=== PATIENT | female | born 1990 | race Caucasian/White ===

== ENCOUNTER 2016-11-12 13:06 | Observation (INO) | payer BC ==
[~2016-11-12] VITALS: Ht 157.5 cm; Wt 111.9 kg
[2016-11-12] VITALS (11 sets, daily range): BP systolic 105–125; BP diastolic 53–75
--- NOTE | 2016-11-12 14:45 | ED NURSING NOTES ---
Clinical Report - Nurses [facility] [address] [place] [address] 11/12/2016 13:07 Patient: GLORIA RUIZ TRIAGE Triage time 13:32 Nov 12 2016. Acuity: LEVEL 3. Chief Complaint: HEADACHE and MIGRAINE HEADACHE. ELLE COMA SCORE: Elle Coma Scale: 15- eyes open spontaneously (4); best verbal response- oriented x 4 (5); best motor response- obeys commands (6). --13:46 Artur Lopez R.N. 13:32 11/12/16. BP: 109/76. HR: 112. RR: 18. O2 saturation: 95%. Temp: 98.4 F. Pain level now 10/10. --13:46 Artur Lopez R.N. Weight: 109.7 kg stated. Height/Length: 62 inches Per Patient. BMI: 44.3. --13:43 Artur Lopez R.N. Medications Omeprazole Oral (pt unsure of dose ). --13:33 Artur Lopez R.N. Allergies Percocet. --13:33 Artur Lopez R.N. History Arrived by private vehicle. Historian: patient. Accompanied by family. This started just prior to arrival. She has had weakness. No nausea, vomiting, numbness, fever or sinus pain. Treatment FACILITIES MANAGER: None. PAST MEDICAL HX: Headaches. Last normal menstrual period- 2 days ago. SOCIAL HX: Never smoker. Occasional alcohol use. No drug use. No known contact with a sick individual. SELF HARM ASSESSMENT: A self harm assessment was performed. The patient answered "no" to the question "Have you recently felt down, depressed, or hopeless?" and "Do you have thoughts of harming or killing yourself?". FALL RISK ASSESSMENT: Fall risk assessment completed. No fall risk identified. NUTRITIONAL RISK ASSESSMENT: The nutritional risk assessment revealed no deficiencies. FUNCTIONAL ASSESSMENT: Functional assessment: no impairments noted. LEARNING NEEDS ASSESSMENT: The learning needs assessment revealed no barriers. ABUSE ASSESSMENT: Abuse assessment: (no) The patient was asked "Do you feel safe in your home?". SKIN INTEGRITY ASSESSMENT: Skin integrity risk assessment completed. No skin integrity risk identified. --13:46 Artur Lopez R.N. PROBLEMS: Hypocalcemia. Abnormal Test. Gastritis. Abdominal Pain. Nephrolithiasis. Asthma. Arthritis. Fever. UTI - Urinary Tract Infection. Lymphadenitis. Pharyngitis. Sprain. LNMP - Last Normal Menstrual Period. Dental Pain. Immunizations. --13:33 Artur Lopez R.N. The following entry was modified by Artur Lopez R.N., 13:45 <<STRICKEN ENTRY-- . --21:37 Artur Lopez R.N. --END STRIKE>>. ADDITIONAL SURGERIES: Adenoidectomy. Dilatation & Curettage. Tonsillectomy. Tympanostomy Tubes. --13:33 Artur Lopez R.N. Interventions ID and allergy band on patient. --13:46 Artur Lopez R.N. PHYSICAL ASSESSMENT To room via wheelchair. GENERAL / NEURO / PSYCH: Alert. Oriented X 4. Appears anxious. Speech within normal limits. HEENT: No facial asymmetry noted. Pupils equal, round and reactive to light. RESPIRATORY: Respirations not labored. Breath sounds within normal limits. CVS: Capillary refill less than 2 seconds. GI / : Abdomen soft and nontender. ( Has a stool accident in pants). SKIN: Skin is warm and dry. --13:47 Artur Lopez R.N. NURSING PROGRESS NOTES The initial plan of care for this patient includes an assessment with efforts to address patient positioning and appropriate ambient lighting. Pulse oximeter and NIBP monitor placed on patient. Reassurance given. Call light placed in reach. Side rails up x 1. Bed placed in lowest position. Brakes of bed on. --13:47 Artur Lopez R.N. 13:58 11/12/2016 Site #1 started via IV in the right upper arm with an 20g angiocath; one attempt. Blood drawn: rainbow set. Labeled in the presence of the patient and sent to the lab. Saline lock flushed with 10 mL saline. --14:13 Artur Lopez R.N. 14:04 11/12/2016 Started bag #1 1000 mL IV Fluids IV NS (Saline); at 1000 mL/hr over 1 hour(s) via site #1 via dial-a-flow. Allergies verified and confirmed 5 rights. IV patency established. IV site checked: no pain, redness, or swelling. IV flushed thoroughly pre- and post-medication administration. --14:14 Artur Lopez R.N. 14:09 11/12/2016 Reglan (Metoclopramide HCl) IVP 10 mg given over 4 minute(s) via site #1. Allergies verified and confirmed 5 rights. IV patency established. IV site checked: no pain, redness, or swelling. IV flushed thoroughly pre- and post-medication administration. --14:14 Artur Lopez R.N. 14:10 11/12/2016 Benadryl (DiphenhydrAMINE HCl) IVP 25 mg given over 2 minute(s) via site #1. Allergies verified, confirmed 5 rights and sedative warning given to the patient and patient's granulator machine operator. IV patency established. IV site checked: no pain, redness, or swelling. IV flushed thoroughly pre- and post-medication administration. --14:15 Artur Lopez R.N. 14:15 11/12/2016 Toradol IVP 30 mg given over 1 minute(s) via site #1. Allergies verified and confirmed 5 rights. IV patency established. IV site checked: no pain, redness, or swelling. IV flushed thoroughly pre- and post-medication administration. --14:15 Artur Lopez R.N. 14:15 11/12/2016 Meclizine PO Capsules 50 mg given. Allergies verified, confirmed 5 rights and sedative warning given to the patient and patient's family. --14:15 Artur Lopez R.N. 14:45 11/12/2016 IV Fluids IV NS Discontinued: bag #1 infused. Total amount infused: 55320 mL. IV patency established. IV site checked: no pain, redness, or swelling. IV flushed thoroughly. --14:45 Artur Lopez R.N. 14:52 11/12/2016 Started bag #1 1000 mL IV Fluids IV NS (Saline); at 100 mL/hr over 8 hour(s) via site #1 via IV pump. Allergies verified and confirmed 5 rights. IV patency established. IV site checked: no pain, redness, or swelling. IV flushed thoroughly pre- and post-medication administration. --14:52 Artur Lopez R.N. ( Called for report to 3rd no answer.). --15:32 Artur Lopez R.N. 15:47 11/12/16. BP: 120/72. HR: 100. RR: 18. O2 saturation: 99%. Temp: 98.4 F. Pain level now 0/10. --15:47 Artur Lopez R.N. ( Report given to SCU RN patient to be transferred after EKG.). --15:48 Artur Lopez R.N. EKG time: (1556). EKG was ordered, performed by a tech and shown to the ED physician. --16:12 Chelo Lopez. DISPOSITION / DISCHARGE Admitted to the Critical Care Unit (302). --16:14 Artur Lopez R.N. 15:47 11/12/16. BP: 120/72. HR: 100. RR: 18. O2 saturation: 99%. Temp: 98.4 F. Pain level now 0/10. --16:14 Artur Lopez R.N. Departure time: 16:00 Nov 12 2016. --16:14 Artur Lopez R.N. Locked/Released at 11/13/2016 19:20 by Artur Lopez R.N.
--- NOTE | 2016-11-12 14:45 | ED CLINICAL REPORT ---
Clinical Report - Physicians/Mid Levels [facility] [address] [place] [address] 11/12/2016 13:07 Patient: GLORIA RUIZ Time Seen: 13:38; initial patient contact, initial documentation, patient care assumed. Arrived- By private vehicle. Historian- patient and spouse. HISTORY OF PRESENT ILLNESS Is still present and now worse. 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 Chief Complaint: HEADACHE. This started several months ago. It is described as similar to previous headaches, "pain" and diffuse. No neck pain. Not located in the facial region. At its maximum, severity described as severe. When seen in the E.D., severity described as severe. Modifying factors: worsened by moving head and general movement; relieved by nothing. The patient has had nausea. She has had new onset of generalized weakness. No preceding symptoms, blurred vision, photophobia, numbness or vomiting. (says she is seeing head specialist , and they started her on verapamil for headaches, and that she was dx with pseudotumors was with spouse at work, assisting in moving a car, and got very dizzy and had to lay down, and then she was so weak, she started to poop on herself). No recent travel. Similar symptoms previously: Chronically, worse. REVIEW OF SYSTEMS No fever, muscle aches, sinus pressure, ear pain or sore throat. No head injury, chest pain, difficulty breathing or cough. She has had moderate dizziness described as vertiginous in quality. on period now, and this period and last months were very heavy, with lots of clots. All systems otherwise negative, except as recorded above. PAST HISTORY See nurses notes. PROBLEMS: Hypocalcemia. Abnormal Test. Gastritis. Abdominal Pain. Nephrolithiasis. Asthma. Arthritis. Fever. UTI - Urinary Tract Infection. Lymphadenitis. Pharyngitis. Sprain. LNMP - Last Normal Menstrual Period. Dental Pain. Immunizations. --13:33 Artur Lopez R.N. The following entry was modified by Artur Lopez R.N., 13:45 . --21:37 Artur Lopez R.N.. ADDITIONAL SURGERIES: Adenoidectomy. Dilatation & Curettage. Tonsillectomy. Tympanostomy Tubes. --13:33 Artur Lopez R.N. SOCIAL HISTORY Never smoker. Occasional alcohol use. No drug use. No recent travel. She lives with spouse. FAMILY HISTORY Negative. ADDITIONAL NOTES The nursing notes have been reviewed with agreement regarding the chief complaint, HPI, ROS, PMH and patient medications and allergies. PHYSICAL EXAM Vital Signs: 11/12/2016 13:32 BP: 109/76. HR: 112. RR: 18. O2 saturation: 95%. Temp: 98.4 F. Have been reviewed as abnormal and appear to be correct. Blood pressure normal. Tachycardic. Respiratory rate normal. Temperature normal. Oxygen saturation normal. Appearance: Alert. No acute distress. Eyes: Pupils equal, round and reactive to light. Eyes normal inspection. ENT: Ears normal. Nose normal. Pharynx normal. Neck: Normal inspection. Neck supple. CVS: Normal heart rate and rhythm. Heart sounds normal. Pulses normal. Respiratory: No respiratory distress. Breath sounds normal. Abdomen: Moderately obese. Back: Normal inspection. Rectal: Rectal exam normal. No abnormal findings on digital exam or exam. Skin: Skin warm and dry. Slight pallor. Abnormal skin color. No rash. Normal skin turgor. Extremities: Extremities exhibit normal ROM. No lower extremity edema. Neuro: Oriented X 3. Alert. Mood/affect normal. Speech normal. Cranial nerves normal (as tested). No cerebellar findings. No motor deficit. No sensory deficit. LABS, X-RAYS, AND EKG EKG: EKG time: (1556). No acute process. No acute ischemia. Normal EKG. Bradycardia. The study has been interpreted contemporaneously (by dr mohan and reviewed by me). The EKG appears to be a good tracing. Interpretation time: 1558. Laboratory Tests: Serum Qualitative: (DANIEL: 11/12/2016 14:00) ( MsgRcvd 11/12/2016 14:30) Final results Test Result Flag Units (Reference) , SERUM NEGATIVE CBC w Diff: (DANIEL: 11/12/2016 14:00) ( MsgRcvd 11/12/2016 14:58) Final results Test Result Flag Units (Reference) WHITE BLOOD COUNT 9.4 K/uL (4.5-11.5) RED BLOOD COUNT 3.67 L M/uL (4.00-5.20) HEMOGLOBIN 6.6 *L gm/dL (12.0-16.0) CRITICAL RESULTS CALLEDCalled to ADRIANE REYNOLDS RN 11/12/16 1432Were 2 patient identifiers used? YWas the result read back? Y HEMATOCRIT 22.2 L % (36.0-46.0) MEAN CELL VOLUME 61 L fL (80-100) MEAN CORPUSCULAR HGB 18 L pg (26-34) MEAN CORPUSCULAR HGB CONC 30 L g/dL (31-37) RED CELL DISTRIBUTION WIDTH 18.8 H % (11.6-14.8) PLATELET COUNT 330 K/uL (150-400) NEUTROPHIL % 79.8 H % (50-75) LYMPH % 13.8 L % (25-40) MONO % 5.2 % (3-14) EOSINOPHIL % 0.9 % (0-4) BASOPHIL % 0.3 % (0-2) RBC MORPHOLOGY 2+ HYPOCHROMIA~~1+ ANISOCYTOSIS~~1+ MICROCYTOSIS~~1+ POIKILOCYTOSIS~~1+ POLYCHROMIA CMP: (DANIEL: 11/12/2016 14:00) ( MsgRcvd 11/12/2016 14:33) Final results Test Result Flag Units (Reference) GLUCOSE 105 mg/dL (70-110) BUN 15 mg/dL (7-18) CREATININE 0.9 mg/dL (0.6-1.3) Estimated GFR >60 mL/min Estimated GFR- >60 mL/min Note: Persistent reduction over 3 months in eGFR<60 mL/min/1.73 m2 defines CKD. Patients with eGFR values>=60 mL/min/1.73 m2 may also have CKD if evidence ofpersistent proteinuria. Additional information may be foundat www.kidney.org. SODIUM 139 mmol/L (136-145) POTASSIUM 3.7 mmol/L (3.5-5.1) CHLORIDE 101 mmol/L (98-107) CARBON DIOXIDE 26 mmol/L (21-32) CALCIUM 9.4 mg/dL (8.5-10.1) TOTAL PROTEIN 7.7 g/dL (6.4-8.2) ALBUMIN 3.9 g/dL (3.3-5.0) BILIRUBIN, TOTAL 0.3 mg/dL (0.0-1.0) ALKALINE PHOSPHATASE 87 U/L (46-116) AST (SGOT) 13 L U/L (15-37) ALT (SGPT) 20 U/L (12-78) . PROGRESS AND PROCEDURES Discussed case with on-call health care provider, (call returned 1440 Dr Khan). Reviewed test results. Agreed upon treatment plan and decision to admit. Health care provider will see patient in hospital. Differential Diagnosis: I considered labyrinthitis, vestibular neuronitis, Meniere's disease, drug-related etiology, benign positional vertigo, brainstem TIA, basilar artery migraine, drug-related cause of central vertigo, anxiety, psychosis and metaphorical dizziness such as depression, chronic fatigue, etc as a possible cause of dizziness in this patient. This is a partial list of diagnoses considered. Above considerations are based on history, physical exam, reassessment and laboratory data. Differential diagnosis was discussed with patient and patient's spouse. Observation orders written. Disposition: Admitted to Acute Care. 14:44. Condition: good and stable. CLINICAL IMPRESSION Acute vertigo of unknown cause. Mild chronic iron deficiency anemia from chronic blood loss and anemia associated with acute blood loss. (Electronically signed by Lashae Trujillo A.R.N.P. 11/12/2016 16:23) Addenda for GLORIA RUIZ VisitID: [id number] Date: 11/12/2016 11/12/2016 15:49 I have written minimal transition orders. As I got past Dx and admit status I started duplicating Dr Khan's orders which were already done. (Electronically signed by Casimiro Mohan MD - 11/12/2016 15:49)
--- NOTE | 2016-11-12 14:45 | ED ORDER SUMMARY ---
..... Patient: GLORIA RUIZ OrderSheet [facility] VisitID: [id number] [address] [place] [address] 26y, F Registration Date/Time: 11/12/2016 ORDER SHEET Weight: 109.7 kg (stated) Allergies: Percocet GENERAL ORDERS: CBC w Diff Urgent (13:46 11/12/2016 HBivens A.R.N.P.) (Ack 13:48 OHnirajnandez) (14:14 LWhalen R.N.) CMP Urgent (13:46 11/12/2016 HBivens A.R.N.P.) (Ack 13:48 OHnirajnandez) (14:14 LWhalen R.N.) Serum Qualitative Urgent (13:46 11/12/2016 HBivens A.R.N.P.) (Ack 13:48 OHnirajnandez) (14:14 LWhalen R.N.) Type & Screen Urgent (14:34 11/12/2016 HBivens A.R.N.P.) (14:34 HBivens A.R.N.P.) Type & Cross (anemia) (anemia, low h&H) Urgent (14:42 11/12/2016 HBivens A.R.N.P.) (14:52 LWhalen R.N.) - (Vitamin B 12 level stat) (14:43 11/12/2016 HBivens A.R.N.P.) (14:52 LWhalen R.N.) -- (folate level stat) (14:43 11/12/2016 HBivens A.R.N.P.) (14:52 LWhalen R.N.) --- (Iron profile study panel stat) (14:43 11/12/2016 HBivens A.R.N.P.) (14:52 LWhalen R.N.) EKG - ER Stat (15:47 11/12/2016 HBivens A.R.N.P.) (Ack 15:57 Cristian) (16:00 Cristian) MEDICATION ORDERS: Meclizine PO 50 mg (NOW) (13:46 11/12/2016 HBivens A.R.N.P.) (14:15 LWhalen R.N.) IV FLUIDS: IV NS : initial bolus 1000 mL (1000 mL/hr), then none - (NOW) (13:46 11/12/2016 HBivens A.R.N.P.) (14:14 LWhalen R.N.) Reglan IV 10 mg (NOW) (13:46 11/12/2016 HBivens A.R.N.P.) (14:14 LWhalen R.N.) Benadryl IV 25 mg (NOW) (13:46 11/12/2016 HBivens A.R.N.P.) (14:15 LWhalen R.N.) Toradol IV 30 mg (NOW) (13:46 11/12/2016 HBivens A.R.N.P.) (14:15 LWhalen R.N.) IV Saline Lock (13:46 11/12/2016 HBivens A.R.N.P.) (14:13 LWhalen R.N.) IV NS : initial bolus 1000 mL (1000 mL/hr), then 100 mL/hr (NOW) (14:43 11/12/2016 HBivens A.R.N.P.) (14:52 LWhalen R.N.) ORDER SHEET NOTES: [Electronically signed by Lashae Trujillo.R.N.P. (16:23 11/12/2016)] [Electronically signed by Artur Lopez R.N. (19:20 11/13/2016)] [Electronically locked/signed by Artur Lopez R.N. (19:20 11/13/2016)]
--- NOTE | 2016-11-12 14:45 | ED NURSING NOTES ---
Clinical Report - Nurses [facility] [address] [place] [address] 11/12/2016 13:07 Patient: GLORIA RUIZ TRIAGE Triage time 13:32 Nov 12 2016. Acuity: LEVEL 3. Chief Complaint: HEADACHE and MIGRAINE HEADACHE. ELLE COMA SCORE: Elel Coma Scale: 15- eyes open spontaneously (4); best verbal response- oriented x 4 (5); best motor response- obeys commands (6). --13:46 Artur Lopez R.N. 13:32 11/12/16. BP: 109/76. HR: 112. RR: 18. O2 saturation: 95%. Temp: 98.4 F. Pain level now 10/10. --13:46 Artur Lopez R.N. Weight: 109.7 kg stated. Height/Length: 62 inches Per Patient. BMI: 44.3. --13:43 Artur Lopez R.N. Medications Omeprazole Oral (pt unsure of dose ). --13:33 Artur Lopez R.N. Allergies Percocet. --13:33 Artur Lopez R.N. History Arrived by private vehicle. Historian: patient. Accompanied by family. This started just prior to arrival. She has had weakness. No nausea, vomiting, numbness, fever or sinus pain. Treatment CLINICAL SYSTEMS ANALYST: None. PAST MEDICAL HX: Headaches. Last normal menstrual period- 2 days ago. SOCIAL HX: Never smoker. Occasional alcohol use. No drug use. No known contact with a sick individual. SELF HARM ASSESSMENT: A self harm assessment was performed. The patient answered "no" to the question "Have you recently felt down, depressed, or hopeless?" and "Do you have thoughts of harming or killing yourself?". FALL RISK ASSESSMENT: Fall risk assessment completed. No fall risk identified. NUTRITIONAL RISK ASSESSMENT: The nutritional risk assessment revealed no deficiencies. FUNCTIONAL ASSESSMENT: Functional assessment: no impairments noted. LEARNING NEEDS ASSESSMENT: The learning needs assessment revealed no barriers. ABUSE ASSESSMENT: Abuse assessment: (no) The patient was asked "Do you feel safe in your home?". SKIN INTEGRITY ASSESSMENT: Skin integrity risk assessment completed. No skin integrity risk identified. --13:46 Artur Lopez R.N. PROBLEMS: Hypocalcemia. Abnormal Test. Gastritis. Abdominal Pain. Nephrolithiasis. Asthma. Arthritis. Fever. UTI - Urinary Tract Infection. Lymphadenitis. Pharyngitis. Sprain. LNMP - Last Normal Menstrual Period. Dental Pain. Immunizations. --13:33 Artur Lopez R.N. The following entry was modified by Artur Lopez R.N., 13:45 <<STRICKEN ENTRY-- . --21:37 Artur Lopez R.N. --END STRIKE>>. ADDITIONAL SURGERIES: Adenoidectomy. Dilatation & Curettage. Tonsillectomy. Tympanostomy Tubes. --13:33 Artur Lopez R.N. Interventions ID and allergy band on patient. --13:46 Artur Lopez R.N. PHYSICAL ASSESSMENT To room via wheelchair. GENERAL / NEURO / PSYCH: Alert. Oriented X 4. Appears anxious. Speech within normal limits. HEENT: No facial asymmetry noted. Pupils equal, round and reactive to light. RESPIRATORY: Respirations not labored. Breath sounds within normal limits. CVS: Capillary refill less than 2 seconds. GI / : Abdomen soft and nontender. ( Has a stool accident in pants). SKIN: Skin is warm and dry. --13:47 Artur Lopez R.N. NURSING PROGRESS NOTES The initial plan of care for this patient includes an assessment with efforts to address patient positioning and appropriate ambient lighting. Pulse oximeter and NIBP monitor placed on patient. Reassurance given. Call light placed in reach. Side rails up x 1. Bed placed in lowest position. Brakes of bed on. --13:47 Artur Lopez R.N. 13:58 11/12/2016 Site #1 started via IV in the right upper arm with an 20g angiocath; one attempt. Blood drawn: rainbow set. Labeled in the presence of the patient and sent to the lab. Saline lock flushed with 10 mL saline. --14:13 Artur Lopez R.N. 14:04 11/12/2016 Started bag #1 1000 mL IV Fluids IV NS (Saline); at 1000 mL/hr over 1 hour(s) via site #1 via dial-a-flow. Allergies verified and confirmed 5 rights. IV patency established. IV site checked: no pain, redness, or swelling. IV flushed thoroughly pre- and post-medication administration. --14:14 Artur Lopez R.N. 14:09 11/12/2016 Reglan (Metoclopramide HCl) IVP 10 mg given over 4 minute(s) via site #1. Allergies verified and confirmed 5 rights. IV patency established. IV site checked: no pain, redness, or swelling. IV flushed thoroughly pre- and post-medication administration. --14:14 Artur Lopez R.N. 14:10 11/12/2016 Benadryl (DiphenhydrAMINE HCl) IVP 25 mg given over 2 minute(s) via site #1. Allergies verified, confirmed 5 rights and sedative warning given to the patient and patient's visual and stock associate. IV patency established. IV site checked: no pain, redness, or swelling. IV flushed thoroughly pre- and post-medication administration. --14:15 Artur Lopez R.N. 14:15 11/12/2016 Toradol IVP 30 mg given over 1 minute(s) via site #1. Allergies verified and confirmed 5 rights. IV patency established. IV site checked: no pain, redness, or swelling. IV flushed thoroughly pre- and post-medication administration. --14:15 Artur Lopez R.N. 14:15 11/12/2016 Meclizine PO Capsules 50 mg given. Allergies verified, confirmed 5 rights and sedative warning given to the patient and patient's family. --14:15 Artur Lopez R.N. 14:45 11/12/2016 IV Fluids IV NS Discontinued: bag #1 infused. Total amount infused: 11896 mL. IV patency established. IV site checked: no pain, redness, or swelling. IV flushed thoroughly. --14:45 Artur Lopez R.N. 14:52 11/12/2016 Started bag #1 1000 mL IV Fluids IV NS (Saline); at 100 mL/hr over 8 hour(s) via site #1 via IV pump. Allergies verified and confirmed 5 rights. IV patency established. IV site checked: no pain, redness, or swelling. IV flushed thoroughly pre- and post-medication administration. --14:52 Artur Lopez R.N. ( Called for report to 3rd no answer.). --15:32 Artur Lopez R.N. 15:47 11/12/16. BP: 120/72. HR: 100. RR: 18. O2 saturation: 99%. Temp: 98.4 F. Pain level now 0/10. --15:47 Artur Lopez R.N. ( Report given to SCU RN patient to be transferred after EKG.). --15:48 Artur Lopez R.N. EKG time: (1556). EKG was ordered, performed by a tech and shown to the ED physician. --16:12 Chelo Lopez. DISPOSITION / DISCHARGE Admitted to the Critical Care Unit (302). --16:14 Artur Lopez R.N. 15:47 11/12/16. BP: 120/72. HR: 100. RR: 18. O2 saturation: 99%. Temp: 98.4 F. Pain level now 0/10. --16:14 Artur Lopez R.N. Departure time: 16:00 Nov 12 2016. --16:14 Artur Lopez R.N. Locked/Released at 11/13/2016 19:20 by Artur Lopez R.N.
--- NOTE | 2016-11-12 14:45 | ED ORDER SUMMARY ---
..... Patient: GLORIA RUIZ OrderSheet [facility] VisitID: [id number] [address] [place] [address] 26y, F Registration Date/Time: 11/12/2016 ORDER SHEET Weight: 109.7 kg (stated) Allergies: Percocet GENERAL ORDERS: CBC w Diff Urgent (13:46 11/12/2016 HBivens A.R.N.P.) (Ack 13:48 OHnirajnandez) (14:14 LWhalen R.N.) CMP Urgent (13:46 11/12/2016 HBivens A.R.N.P.) (Ack 13:48 OHnirajnandez) (14:14 LWhalen R.N.) Serum Qualitative Urgent (13:46 11/12/2016 HBivens A.R.N.P.) (Ack 13:48 OHnirajnandez) (14:14 LWhalen R.N.) Type & Screen Urgent (14:34 11/12/2016 HBivens A.R.N.P.) (14:34 HBivens A.R.N.P.) Type & Cross (anemia) (anemia, low h&H) Urgent (14:42 11/12/2016 HBivens A.R.N.P.) (14:52 LWhalen R.N.) - (Vitamin B 12 level stat) (14:43 11/12/2016 HBivens A.R.N.P.) (14:52 LWhalen R.N.) -- (folate level stat) (14:43 11/12/2016 HBivens A.R.N.P.) (14:52 LWhalen R.N.) --- (Iron profile study panel stat) (14:43 11/12/2016 HBivens A.R.N.P.) (14:52 LWhalen R.N.) EKG - ER Stat (15:47 11/12/2016 HBivens A.R.N.P.) (Ack 15:57 Cristian) (16:00 Cristian) MEDICATION ORDERS: Meclizine PO 50 mg (NOW) (13:46 11/12/2016 HBivens A.R.N.P.) (14:15 LWhalen R.N.) IV FLUIDS: IV NS : initial bolus 1000 mL (1000 mL/hr), then none - (NOW) (13:46 11/12/2016 HBivens A.R.N.P.) (14:14 LWhalen R.N.) Reglan IV 10 mg (NOW) (13:46 11/12/2016 HBivens A.R.N.P.) (14:14 LWhalen R.N.) Benadryl IV 25 mg (NOW) (13:46 11/12/2016 HBivens A.R.N.P.) (14:15 LWhalen R.N.) Toradol IV 30 mg (NOW) (13:46 11/12/2016 HBivens A.R.N.P.) (14:15 LWhalen R.N.) IV Saline Lock (13:46 11/12/2016 HBivens A.R.N.P.) (14:13 LWhalen R.N.) IV NS : initial bolus 1000 mL (1000 mL/hr), then 100 mL/hr (NOW) (14:43 11/12/2016 HBivens A.R.N.P.) (14:52 LWhalen R.N.) ORDER SHEET NOTES: [Electronically signed by Lashae Trujillo.R.N.P. (16:23 11/12/2016)] [Electronically signed by Artur Lopez R.N. (19:20 11/13/2016)] [Electronically locked/signed by Artur Lopez R.N. (19:20 11/13/2016)]
--- NOTE | 2016-11-12 15:13 | Progress Note ---
Subjective General Admission History and Physical Examination Patient Name: Cee Easton Admission Date: November 12, 2016 Primary Care Provider: Radha Ordonez M.D. Attending Physician: Tomás Khan M.D. Admitting Physician: Tomás Khan M.D. Code Status: Full Code Room: 302 SUBJECTIVE Historian: Patient Reliability: Fair Chief Complaint: Dizziness, headache History of Present Illness: The patient is a 26-year-old white female with a significant past medical history of migraine headaches, nephrolithiasis, asthma, degenerative joint disease, gastritis, who presented to [facility] emergency department on the day of admission secondary to complaints of migraine headache. [facility] ER evaluation showed the patient to have findings of headache with associated severe anemia H& H 6.6/22.2, MCV 61. Secondary to the above, the patient was admitted by Tomás Khan M.D. for further evaluation and treatment. PAST MEDICAL HISTORY Illnesses: 1. Migraine headaches 2. Nephrolithiasis 3. Gastritis 4. Asthma 5. Degenerative joint disease Allergies: 1. Percocet Medications: 1. Prilosec 20 mg by mouth daily Surgery: 1. Tonsillectomy and adenoidectomy 2. D&C 3. Tympanostomy tubes Injuries: 1. No significant Hospitalizations: 1. For above surgery and medical problems FAMILY HISTORY Parents: 1. Father, Diamond, living, 63, diabetes mellitus, hypertension, 2. Mother, Carola, living, 57, healthy Siblings: 1. Male, Vitor, living, 36, irritable bowel syndrome, celiac disease, migraine headaches 2. Female, Yasemin, living, 31, migraine headaches Children: 1. Female, Alina, living, 7, healthy 2. Female, Trinh living, 2, asthma Other significant family history: None SOCIAL HISTORY 1. Marital Status: 2. Jew: Catholic-Roman Catholic 3. Education: High school and one year college 4. Employment History: Unemployed 5. Occupational health exposures: None HABITS 1. Tobacco: None 2. Drugs: None 3. Alcohol: Infrequent alcohol usage 4. Caffeine: 2 cups coffee, 1 cup tea, one can of soft drink per day HEALTH SUPERVISION Item/Test 1. Vision screen: No recent 2. Cholesterol Profile: No recent 3. PSA: Not applicable 4. SINDI: 2016 5. FOBT: 2017 6. Blood Glucose: 2017 7. Colonoscopy: No previous 8. History and physical exam: No recent 9. Audiogram: No previous 10. Mammogram: No previous 11. Pap/pelvic exam: Unknown IMMUNIZATIONS: 1. Pneumococcal: No previous 2. Influenza: No previous 3. Tetanus: Unknown ADVANCED DIRECTIVES: 1. Living well: No 2. POLST: No 3. Code Status: Full Code 4. 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 Donor card: No REVIEW OF SYSTEMS Remarkable for those things stated in the history of present illness and past medical history. Seventeen point review of system completed with the following notable findings: General: Fatigue, pain, weakness Ears: Tinnitus Mouth: Dental problems Throat: Neck stiffness Gastrointestinal: Loss of appetite Musculoskeletal: Weakness, backache Neurological: Balance problems, headaches Blood and lymphatic: Anemia Psychological: Insomnia, anxiety Genitourinary: Heavy irregular menses Physical Exam Vital Signs / I&Os Blood pressure: 109/76 mmHg Heart rate: 112/minute Respiratory rate: 18/minute Temperature: 98.4 Fahrenheit orally Oxygen saturation: 95% room air General Appearance Alert, Oriented X3, Cooperative, No acute distress HEENT Atraumatic, PERRLA, EOMI, Moist mucous membranes, pale mucous membranes Lungs Clear to auscultation, Normal air movement Neck Supple, No JVD Cardiovascular Regular rate and rhythm, Normal S1 and S2, No murmurs, gallops, rubs Abdomen Normal bowel sounds, Soft, No tenderness Extremities No cyanosis, No clubbing, No edema Neurological Cranial nerves intact, Strength 5/5 x4 ext's, No lateralizing signs Psych/Mental Status Mental status normal, Mood normal LAB Results Laboratory Tests 11/12 11/12 11/12 1400 1400 1400 Chemistry Iron Pending TIBC Pending Iron Saturation Pending Vitamin B12 Pending Folate Pending Serum , Qual NEGATIVE 11/12 1400 Chemistry Plasma Sodium (136 - 145 mmol/L) 139 Plasma Potassium (3.5 - 5.1 mmol/L) 3.7 Plasma Chloride (98 - 107 mmol/L) 101 CO2 (Enzymatic) (21 - 32 mmol/L) 26 BUN (7 - 18 mg/dL) 15 Creatinine (0.6 - 1.3 mg/dL) 0.9 Est GFR ( Amer) (mL/min) >60 Est GFR (Non-Af Amer) (mL/min) >60 Glucose (70 - 110 mg/dL) 105 Plasma Calcium (8.5 - 10.1 mg/dL) 9.4 Total Bilirubin (0.0 - 1.0 mg/dL) 0.3 AST (15 - 37 U/L) 13 ALT (12 - 78 U/L) 20 Alkaline Phosphatase (46 - 116 U/L) 87 Total Protein (6.4 - 8.2 g/dL) 7.7 Albumin (3.3 - 5.0 g/dL) 3.9 Hematology WBC (4.5 - 11.5 K/uL) 9.4 RBC (4.00 - 5.20 M/uL) 3.67 Hgb (12.0 - 16.0 gm/dL) 6.6 Hct (36.0 - 46.0 %) 22.2 MCV (80 - 100 fL) 61 MCH (26 - 34 pg) 18 RDW (11.6 - 14.8 %) 18.8 Neut % (Auto) (50 - 75 %) 79.8 Lymph % (Auto) (25 - 40 %) 13.8 [place] % (Auto) (3 - 14 %) 5.2 Eos % (Auto) (0 - 4 %) 0.9 Baso % (Auto) (0 - 2 %) 0.3 Plt Count, EDTA (150 - 400 K/uL) 330 RBC Morphology (4202 A) 1+ POLYCHROMIA PUBS MCHC (31 - 37 g/dL) 30 Assessment and Plan Problem List 1. Microcytic anemia Status Acute Onset Date Unknown Plan -Patient with findings of macrocytic anemia -Subsequent iron studies consistent with iron deficiency anemia -Patient gives history of menorrhagia but no history of GI blood loss -Patient has been using ibuprofen for headache recently -Stool for Hemoccult testing and emergency Department negative -Check stool Hemoccult -Protonix 40 mg IV/by mouth twice a day -Transfuse 1 unit packed RBCs -Iron 325 mg by mouth twice a day provided no findings of GI bleeding at this time 2. Migraine headache Status Chronic Onset Date Unknown Plan -Patient with history of migraine headaches -Present headache appears to be tension headache -Toradol 30 mg IV every 6 hours -Morphine 1-2 mg IV every 30 minutes when necessary pain -Monitor -Consider CT scan -Neurological exam within normal limits -History of pseudotumor cerebri approximately 9 years ago 3. Lightheadedness Status Acute Onset Date Unknown Plan -Patient admitted with findings of lightheadedness/presyncope -Symptoms improved -Most likely secondary to headache/anemia -Check orthostatic blood pressure -Monitor 4. Hematuria Status Acute Onset Date Unknown Plan -Patient with findings of hematuria -Most likely secondary to heavy menses -We'll hold antimicrobials await urine C&S -Recheck when off menses, consider catheter specimen 5. Gastritis Status Chronic Onset Date Unknown Plan -Patient with history of nausea no vomiting -Denies any history of melena/hematochezia -Check stool Hemoccult -Protonix 40 mg by mouth twice a day -Monitor Current status: Unstable, fair Anticipated discharge date: Anticipated discharge in 24-48 hours Anticipated discharge placement: Home Patient care time: Time spent in chart review, patient interview, physical exam, CPOE, and care documentation: 70 minutes Visit to patient today: 2 Complexity of care: High E&M Codes Admission: Obsv-Comp/High/[id number]
[2016-11-12] MEDS ORDERED: CVS OMEPRAZOLE20 MG PO (15:49)
[2016-11-13] VITALS (7 sets, daily range): BP systolic 102–131; BP diastolic 53–81
--- NOTE | 2016-11-13 07:29 | Progress Note ---
Subjective General Note Date: November 13, 2016 Admission Date: November 12, 2016 Hospital Day: 2 PCP: Dr. Ordonez Status: Observation Advanced Directive: Full Code Room: 302 Brief History: The patient is a 26-year-old white female with a significant past medical history of migraine headaches, nephrolithiasis, asthma, degenerative joint disease, gastritis, who presented to [facility] emergency department on the day of admission secondary to complaints of migraine headache. [facility] ER evaluation showed the patient to have findings of headache with associated severe anemia H& H 6.6/22.2, MCV 61. Secondary to the above, the patient was admitted by Tomás Khan M.D. for further evaluation and treatment. For other history present illness, past medical history, family history, social history, review of systems, and admission physical examination please see the patient's history and physical examination and ER visit note in the patient's medical record. Subjective: The patient states she is doing well. Has persistent headache. CT scan unremarkable. States feels ready for discharge Patient requests: None Medications and Allergies Medications Current Medications Sig/Jacqueline Start time Last Medication Dose Route Stop Time Status Admin Hydromorphone HCl 0.5 MG Q2H PRN 11/12 2345 AC 11/13 IV 0646 Acetaminophen 650 MG Q6H PRN 11/12 1515 AC PO Atropine Sulfate 0.5 MG Q3MIN PRN 11/12 1515 AC IV Lidocaine HCl See Dose ONCE PRN 11/12 1515 AC Insts (1) IV Morphine Sulfate See Dose Q30MIN PRN 11/12 1515 AC 11/12 Insts (2) IV 1958 Ondansetron HCl 4 MG Q6H PRN 11/12 1515 AC IV Pantoprazole Sodium 40 MG Q12HR 11/12 1515 AC 11/12 IV 2108 Sodium Chloride 1,000 ML ASDIRECTED 11/12 1515 AC 11/12 IV 2304 Dose Instructions: (1)Lidocaine HCl: 1.5 MG/KG (2)Morphine Sulfate: 1 - 2 MG Allergies Coded Allergies: Oxycodone (Severe, FROM PERCOCET 11/12/16) Physical Exam Vital Signs / I&Os Vital Signs Date Time Temp Pulse Resp B/P Pulse O2 O2 Flow FiO2 Ox Delivery Rate 11/13 0635 99.0 95 19 129/68 97 Room Air 11/13 0232 99.3 87 17 114/70 96 Room Air 04/02 0208 99.0 100 18 110/53 98 04/02 0104 98.4 88 18 117/65 100 04/01 2355 98.8 92 18 115/62 97 04/01 2348 98.8 92 18 115/65 98 04/01 2238 98.8 94 20 115/65 100 Room Air 04 1944 98.4 94 20 114/66 100 Room Air 11/12 1933 Room Air 04 1845 98.4 94 20 105/53 99 Room Air 04 1815 98.4 94 18 112/67 100 Room Air 04 1745 98.4 94 20 106/55 98 Room Air 04 1730 98.4 95 20 112/59 100 Room Air 11/12 1715 98.8 97 20 116/58 100 Room Air 11/12 1657 98.4 101 20 125/71 99 Room Air 11/12 1638 Room Air 04 1621 99.0 92 20 121/75 100 Room Air I&O 11/13 0000 11/12 1600 11/12 0800 Intake Total 810 Output Total 100 Balance 710 General Appearance Alert, Oriented X3, Cooperative, No acute distress Lungs Clear to auscultation, Normal air movement Cardiovascular Regular rate and rhythm, Normal S1 and S2 Abdomen Normal bowel sounds, Soft, No tenderness, No guarding Extremities No cyanosis, No clubbing, No edema Neurological Normal gait, Normal speech, Cranial nerves intact, Strength 5/5 x4 ext's, No lateralizing signs Psych/Mental Status Mental status normal, Mood normal LAB Results Laboratory Tests 11/13 11/12 11/12 11/12 0415 2155 1400 1400 Chemistry Plasma Sodium (136 - 145 mmol/L) 145 Plasma Potassium (3.5 - 5.1 mmol/L) 3.9 Plasma Chloride (98 - 107 mmol/L) 110 CO2 (Enzymatic) (21 - 32 mmol/L) 25 BUN (7 - 18 mg/dL) 12 Creatinine (0.6 - 1.3 mg/dL) 0.8 Est GFR ( Amer) (mL/min) >60 Est GFR (Non-Af Amer) (mL/min) >60 Glucose (70 - 110 mg/dL) 93 Plasma Calcium (8.5 - 10.1 mg/dL) 8.2 Iron (35 - 150 ug/dL) 14 TIBC (260 - 445 ug/dL) 456 Iron Saturation (15 - 50 %) 3 Serum , Qual NEGATIVE Hematology WBC (4.5 - 11.5 K/uL) 7.6 RBC (4.00 - 5.20 M/uL) 3.61 Hgb (12.0 - 16.0 gm/dL) 7.4 6.3 Hct (36.0 - 46.0 %) 24.2 20.8 MCV (80 - 100 fL) 67 MCH (26 - 34 pg) 21 RDW (11.6 - 14.8 %) 26.5 Neut % (Auto) (50 - 75 %) 67.2 Lymph % (Auto) (25 - 40 %) 25.5 [place] % (Auto) (3 - 14 %) 5.7 Eos % (Auto) (0 - 4 %) 1.3 Baso % (Auto) (0 - 2 %) 0.3 Plt Count, EDTA (150 - 400 K/uL) 275 RBC Morphology (15443 A) POLYCHROMASIA +1 PUBS MCHC (31 - 37 g/dL) 31 11/12 04 1400 1400 Chemistry Plasma Sodium (136 - 145 mmol/L) 139 Plasma Potassium (3.5 - 5.1 mmol/L) 3.7 Plasma Chloride (98 - 107 mmol/L) 101 CO2 (Enzymatic) (21 - 32 mmol/L) 26 BUN (7 - 18 mg/dL) 15 Creatinine (0.6 - 1.3 mg/dL) 0.9 Est GFR ( Amer) (mL/min) >60 Est GFR (Non-Af Amer) (mL/min) >60 Glucose (70 - 110 mg/dL) 105 Plasma Calcium (8.5 - 10.1 mg/dL) 9.4 Total Bilirubin (0.0 - 1.0 mg/dL) 0.3 AST (15 - 37 U/L) 13 ALT (12 - 78 U/L) 20 Alkaline Phosphatase (46 - 116 U/L) 87 Total Protein (6.4 - 8.2 g/dL) 7.7 Albumin (3.3 - 5.0 g/dL) 3.9 Vitamin B12 (211 - 946 pg/mL) 492 Folate (>3.0 ng/mL) 14.1 Coagulation INR (0.8 - 1.2) 0.9 APTT (24 - 34 SECONDS) 27 Hematology WBC (4.5 - 11.5 K/uL) 9.4 RBC (4.00 - 5.20 M/uL) 3.67 Hgb (12.0 - 16.0 gm/dL) 6.6 Hct (36.0 - 46.0 %) 22.2 MCV (80 - 100 fL) 61 MCH (26 - 34 pg) 18 RDW (11.6 - 14.8 %) 18.8 Neut % (Auto) (50 - 75 %) 79.8 Lymph % (Auto) (25 - 40 %) 13.8 [place] % (Auto) (3 - 14 %) 5.2 Eos % (Auto) (0 - 4 %) 0.9 Baso % (Auto) (0 - 2 %) 0.3 Plt Count, EDTA (150 - 400 K/uL) 330 RBC Morphology (4202 A) 1+ POLYCHROMIA PUBS MCHC (31 - 37 g/dL) 30 Urines Urine Color YELLOW Urine Appearance SL CLOUDY Urine pH (5.0 - 8.0) 6.0 Ur Specific [place] (1.010 - 1.030) 1.015 Urine Protein (NEGATIVE) TRACE Urine Ketones (NEGATIVE) NEGATIVE Urine Blood (NEGATIVE) 3+ Urine Nitrite (NEGATIVE) NEGATIVE Urine Bilirubin (NEGATIVE) NEGATIVE Urine Urobilinogen (0.2 - 1.0 EU/dL) 0.2 Ur Leukocyte Esterase (NEGATIVE) TRACE Urine RBC (0 - 1 rbc/hpf) >100 Urine WBC (0 - 1 wbc/hpf) 1-3 Ur Epithelial Cells (0 - 5 EPI/hpf) 0-1 Urine Bacteria (NONE SEEN) TRACE (<1+) Urine Glucose (NEGATIVE) NEGATIVE Urine Comment CULTURE INDICATED Microbiology Date/Time Procedure - Status Source Growth 11/12 1630 MRSA Screen - RECD NASAL 11/12 1400 Urine Culture - RECD URINE CC Assessment and Plan Problem List 1. Iron deficiency anemia Status Acute Onset Date Unknown Plan -Patient with findings of iron deficiency anemia -H&H improved status post transfusion of 2 units packed RBCs -H&H stable -Discharge H&H 7.7/25.0 and stable 12 hours -Outpatient follow-up with PCP -Ferrous sulfate 325 mg by mouth twice a day -Plan discharge today 2. Hematuria Status Acute Onset Date Unknown Plan -Patient with microscopic hematuria -Plan outpatient follow-up with recent menses -Repeat urinalysis in 1-2 weeks with PCP, follow-up if persistent hematuria 3. Gastritis Status Chronic Onset Date Unknown Plan -Patient with history of gastritis -No findings of GI bleeding -ER Hemoccult negative -Continue Prilosec 20 mg by mouth twice a day 4. Migraine headache Status Chronic Onset Date Unknown Plan -Patient with history of migraine headaches -Persistent headache over the past 2 weeks. -This appears to be more characteristic of a tension headache -Follow-up with PCP/neurology this week -Ultram 50 mg by mouth every 6 hours when necessary pain, Celebrex 200 mg by mouth twice a day -CT scan noncontributory other than osteoma Current status: Fair, improved Anticipated discharge date: Today Anticipated discharge placement: Home Patient care time: Time spent in chart review, patient interview, physical exam, CPOE, and care documentation: Greater than 30 minutes Visit to patient today: 3 Complexity of care: Moderate For other recommendations regarding discharge diet, activity, followup, and discharge medications please see the patient's discharge instructions. Greater than 30 min. was spent in the patient's discharge preparation including discharge interview and physical examination, progress note, discharge instructions, and discharge summary E&M Codes Discharge: Inpt >30 min spent/[id number]
--- NOTE | 2016-11-13 14:04 | DIAGNOSTIC IMAGING REPORT ---
PROCEDURE: CT HEAD W/WO CONTRAST INDICATION: Increasing chronic headaches. TECHNIQUE: Noncontrast axial images. Following 96 ml of Isovue 370, axial images were repeated. Sagittal and coronal reformations. COMPARISON: None. FINDINGS: Brain and ventricles are normal. No evidence of an acute process or hemorrhage. No enhancing lesions are identified. There is a partially empty sella (normal variant). 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 Sinuses and mastoids are otherwise normal. IMPRESSION: 1. Negative head CT. 2. Findings discussed with Dr. Khan. All CT scans at this facility use dose modulation, iterative reconstruction, and/or weight-based dosing when appropriate to reduce radiation dose to as low as reasonably achievable.
[2016-11-13] MEDS ORDERED: MAPAP325 MG PO (16:27)
[2016-11-13] MEDS ORDERED: PRENATAL1 TAB PO (16:27)
[2016-11-13] MEDS ORDERED: CELEBREX200 MG PO (16:27)
[2016-11-13] MEDS ORDERED: FERROUS SULFAT325 M1 PO (16:27)
[2016-11-13] MEDS ORDERED: TRAMADOL HCL50 MG PO (16:27)
--- NOTE | 2016-11-13 16:33 | Provider's Discharge Care Plan ---
Problem, Goal, Plan Problem List 1. Iron deficiency anemia Goals: Improve disease control, Prevent disease progress Instructions: Follow up as directed, Take meds as directed 2. Anemia due to blood loss Goals: Improve disease control, Prevent disease progress Instructions: Follow up as directed, Take meds as directed 3. Headache Goals: Improve disease control, Prevent disease progress Instructions: Follow up as directed, Take meds as directed, Follow up with your PCP/Neurologist this week.
--- NOTE | 2016-11-13 19:20 | ED DISCHARGE INSTRUCTIONS ---
Patient: GLORIA RUIZ General Instructions [facility] VisitID: [id number] [address] [place] [address] 26y, F Registration Date/Time: 11/12/2016 Acute vertigo of unknown cause. Mild chronic iron deficiency anemia from chronic blood loss and anemia associated with acute blood loss. (Electronically signed by Lashae Trujillo A.R.N.P. 11/12/2016 16:23)
--- NOTE | 2016-11-13 19:20 | ED DISCHARGE INSTRUCTIONS ---
Patient: GLORIA RUIZ General Instructions [facility] VisitID: [id number] [address] [place] [address] 26y, F Registration Date/Time: 11/12/2016 Acute vertigo of unknown cause. Mild chronic iron deficiency anemia from chronic blood loss and anemia associated with acute blood loss. (Electronically signed by Lashae Trujillo A.R.N.P. 11/12/2016 16:23)
--- NOTE | 2016-11-13 19:20 | ED MAR SUMMARY ---
..... Medication Administration Record [facility] [address] [place] [address] Patient: GLORIA RUIZ Visit ID: [id number] 26y, F Weight: 109.7 kg Height/Length: 62 in BMI: 44.3 ALLERGIES: Percocet Start 14:04 11/12/2016 Artur Lopez R.N., Stop 14:45 11/12/2016 Artur Lopez R.N. Medication Administered: IV NS (SALINE), Dose: IV Fluids over 1 hour(s), Rate: 1000 mL/hr, Dispensed: 1000 mL bag, Site: #1 right upper arm. Medication Ordered: IV NS : initial bolus 1000 mL (1000 mL/hr), then none - (NOW). Given 14:09 11/12/2016 Artur Lopez R.N. Medication Administered: REGLAN [IVP] (METOCLOPRAMIDE HCL), Dose: 10 mg IVP over 4 minute(s), Site: #1 right upper arm. Medication Ordered: Reglan IV 10 mg (NOW). Given 14:10 11/12/2016 Artur Lopez R.N. Medication Administered: BENADRYL [IVP] (DIPHENHYDRAMINE HCL), Dose: 25 mg IVP over 2 minute(s), Site: #1 right upper arm. Medication Ordered: Benadryl IV 25 mg (NOW). Given 14:15 11/12/2016 Artur Lopez R.N. Medication Administered: TORADOL [IVP], Dose: 30 mg IVP over 1 minute(s), Site: #1 right upper arm. Medication Ordered: Toradol IV 30 mg (NOW). Given 14:15 11/12/2016 Artur Lopez R.N. Medication Administered: MECLIZINE [PO], Dose: 50 mg Capsules PO. Medication Ordered: Meclizine PO 50 mg (NOW). Start 14:52 11/12/2016 Artur Lopez R.N. Medication Administered: IV NS (SALINE), Dose: IV Fluids over 8 hour(s), Rate: 100 mL/hr, Dispensed: 1000 mL bag, Site: #1 right upper arm. Medication Ordered: IV NS : initial bolus 1000 mL (1000 mL/hr), then 100 mL/hr (NOW).
--- NOTE | 2016-11-13 19:20 | ED MED RECONCILIATION SUMMARY ---
Patient: GLORIA RUIZ Medication Reconciliation Report [facility] VisitID: [id number] [address] [place] [address] 26y, F Registration Date/Time: 11/12/2016 Weight: 109.7 kg Height/Length: 62 in. BMI: 44.3 ALLERGIES: Percocet The patient's Home Medications are listed below: THE FOLLOWING MEDICATIONS NEED TO BE RECONCILED: Omeprazole Oral, pt unsure of dose The source(s) of the original Home Medication information: Not obtained. The following Medications were given to the patient in the Emergency Department: IV NS IV Fluids bolus 0, then 1000 mL/hr, administered: 11/12/2016 2:04:00 PM Reglan [IVP] IVP 10 mg, administered: 11/12/2016 2:09:00 PM Benadryl [IVP] IVP 25 mg, administered: 11/12/2016 2:10:00 PM Toradol [IVP] IVP 30 mg, administered: 11/12/2016 2:15:00 PM Meclizine [PO] PO 50 mg, administered: 11/12/2016 2:15:00 PM IV NS IV Fluids bolus 0, then 100 mL/hr, administered: 11/12/2016 2:52:00 PM The following Medications were prescribed to the patient: None.
--- NOTE | 2016-11-13 19:20 | ED MED RECONCILIATION SUMMARY ---
Patient: GLORIA RUIZ Medication Reconciliation Report [facility] VisitID: [id number] [address] [place] [address] 26y, F Registration Date/Time: 11/12/2016 Weight: 109.7 kg Height/Length: 62 in. BMI: 44.3 ALLERGIES: Percocet The patient's Home Medications are listed below: THE FOLLOWING MEDICATIONS NEED TO BE RECONCILED: Omeprazole Oral, pt unsure of dose The source(s) of the original Home Medication information: Not obtained. The following Medications were given to the patient in the Emergency Department: IV NS IV Fluids bolus 0, then 1000 mL/hr, administered: 11/12/2016 2:04:00 PM Reglan [IVP] IVP 10 mg, administered: 11/12/2016 2:09:00 PM Benadryl [IVP] IVP 25 mg, administered: 11/12/2016 2:10:00 PM Toradol [IVP] IVP 30 mg, administered: 11/12/2016 2:15:00 PM Meclizine [PO] PO 50 mg, administered: 11/12/2016 2:15:00 PM IV NS IV Fluids bolus 0, then 100 mL/hr, administered: 11/12/2016 2:52:00 PM The following Medications were prescribed to the patient: None.
--- NOTE | 2016-11-13 19:20 | ED MAR SUMMARY ---
..... Medication Administration Record [facility] [address] [place] [address] Patient: GLORAI RUIZ Visit ID: [id number] 26y, F Weight: 109.7 kg Height/Length: 62 in BMI: 44.3 ALLERGIES: Percocet Start 14:04 11/12/2016 Artur Lopez R.N., Stop 14:45 11/12/2016 Artur Lopez R.N. Medication Administered: IV NS (SALINE), Dose: IV Fluids over 1 hour(s), Rate: 1000 mL/hr, Dispensed: 1000 mL bag, Site: #1 right upper arm. Medication Ordered: IV NS : initial bolus 1000 mL (1000 mL/hr), then none - (NOW). Given 14:09 11/12/2016 Artur Lopez R.N. Medication Administered: REGLAN [IVP] (METOCLOPRAMIDE HCL), Dose: 10 mg IVP over 4 minute(s), Site: #1 right upper arm. Medication Ordered: Reglan IV 10 mg (NOW). Given 14:10 11/12/2016 Artur Lopez R.N. Medication Administered: BENADRYL [IVP] (DIPHENHYDRAMINE HCL), Dose: 25 mg IVP over 2 minute(s), Site: #1 right upper arm. Medication Ordered: Benadryl IV 25 mg (NOW). Given 14:15 11/12/2016 Artur Lopez R.N. Medication Administered: TORADOL [IVP], Dose: 30 mg IVP over 1 minute(s), Site: #1 right upper arm. Medication Ordered: Toradol IV 30 mg (NOW). Given 14:15 11/12/2016 Artur Lopez R.N. Medication Administered: MECLIZINE [PO], Dose: 50 mg Capsules PO. Medication Ordered: Meclizine PO 50 mg (NOW). Start 14:52 11/12/2016 Artur Lopez R.N. Medication Administered: IV NS (SALINE), Dose: IV Fluids over 8 hour(s), Rate: 100 mL/hr, Dispensed: 1000 mL bag, Site: #1 right upper arm. Medication Ordered: IV NS : initial bolus 1000 mL (1000 mL/hr), then 100 mL/hr (NOW).
--- NOTE | 2016-11-14 11:34 | Discharge Summary ---
Discharge Summary Report Admit Date 11/12/16 Discharge Date 11/13/16 Admission Diagnosis 1. Microcytic Anemia 2. Menorrhagia 3. Headache-migraine 4. Lightheadedness 5. Gastritis 6. Hematuria-microscopic Discharge Diagnosis 1. Microcytic Anemia 2. Menorrhagia 3. Headache 4. Lightheadedness 5. Gastritis 6. Hematuria-microscopic Brief History The patient is a 26-year-old white female with a significant past medical history of migraine headaches, nephrolithiasis, asthma, degenerative joint disease, gastritis, who presented to [facility] emergency department on the day of admission secondary to complaints of migraine headache. [facility] ER evaluation showed the patient to have findings of headache with associated severe anemia H& H 6.6/22.2, MCV 61. Secondary to the above, the patient was admitted by Tomás Khan M.D. for further evaluation and treatment. For other history present illness, past medical history, family history, social history, review of systems, and admission physical examination please see the patient's history and physical examination and ER visit note in the patient's medical record. Hospital Course The following problems and their management were noted during the patient's hospitalization: 1. Microcytic Anemia The patient presented with findings of macrocytic anemia. Iron studies were consistent with iron deficiency anemia. The patient was treated with ferrous sulfate 325 mg by mouth twice a day at discharge. She underwent transfusion with 2 units packed RBCs during her hospital stay. H&H on discharge was noted to be 7.7/25.0. She will follow-up with her PCP this week for reevaluation 2. Menorrhagia The patient gives a history of menorrhagia. This most likely is a source of her iron deficiency anemia. I recommend she follow-up with her PCP this week for reevaluation. 3. Headache The patient presented with findings of headache. She probably has a history of migraine headaches. Her symptoms were improved with combination of Ultram and Celebrex. She will follow-up with her PCP and neurologist for ongoing evaluation. CT scan showed no significant abnormalities other than osteoma. I' ve asked the patient to follow up her PCP to schedule reevaluation with her neurologist this week. 4. Lightheadedness See above. The patient has a history of lightheadedness associated with severe anemia. This improved during her hospital stay with transfusional therapy. 5. Gastritis The patient has a history of gastritis. This was not problematic during her hospital stay. No further evaluations undertaken. No signs of GI bleeding. 6. Hematuria-microscopic The patient had findings of microscopic hematuria. This was unassociated with menorrhagia. Outpatient follow-up with her PCP with repeat urinalysis and further evaluation is necessary for persistent hematuria. Lab/Imaging Laboratory Tests 11/13 1520 Hematology Hgb (12.0 - 16.0 gm/dL) 7.7 Hct (36.0 - 46.0 %) 25.0 Discharge Instructions/Meds For other recommendations regarding discharge diet, activity, followup, and discharge medications please see the patient's discharge instructions. Discharge condition: Fair, improved Greater than 30 min. was spent in the patient's discharge preparation including discharge interview and physical examination, progress note, discharge instructions, and discharge summary The patient was interviewed and examined on the day of discharge. E&M Codes Discharge: Inpt >30 min spent/96109
== END 2016-11-13 18:00 | disposition home or self-care (01) ==
LOC: ED SRH 13:06 → TRANS SRH 14:52 → CC SRH 16:18
PROVIDERS: ADMIT Emergency Medicine Emergency Medical Services
PROC: 30233N1 Transfusion of Nonautologous Red Blood Cells into Peripheral Vein, Percutaneous Approach (ICD-10-PCS; principal; 2016-11-12)
DX: D50.9 Iron deficiency anemia, unspecified (principal); G43.909 Migraine, unspecified, not intractable, without status migrainosus; N92.0 Excessive and frequent menstruation with regular cycle; R31.29 Other microscopic hematuria; K29.70 Gastritis, unspecified, without bleeding
CPT/HCPCS: 29259; 29264; 90001; 90004; 90047; 90074; 90100; 90155; 90469; 91004; 91162; 91163; 91504; 91505; 91544; 92132; 92668; 92670; 94001; 94060; 95059; 98428